=== PATIENT | female | born 1940 | race Caucasian/White ===

== ENCOUNTER 2025-04-17 13:16 | Emergency (ER) | payer MEDICARE ==
[~2025-04-17] VITALS: Ht 167.6 cm; Wt 83.0 kg
[2025-04-17 13:26] VITALS: TEMP 98.7
[2025-04-17 13:57] LABS: KETONE, URINE AUTO RFX NEGATIVE (NEGATIVE); LEUKOCYTE ESTERASE UR AUTO RFX NEGATIVE (NEGATIVE); MUCUS, URINE RFX SMALL (NEGATIVE); NITRITE, URINE AUTO RFX NEGATIVE (NEGATIVE); RBC, URINE AUTO RFX 2 /HPF (0-3); SQUAM EPITHELIAL CELL UR AURFX 0 /HPF (0-6); WBC, URINE AUTO RFX 0 /HPF (0-3)
[2025-04-17 16:28] VITALS: BP 187/78; O2SAT 99
== END 2025-04-17 16:42 | disposition home or self-care (01) ==
LOC: EDBD 13:16 → M ED 13:16
DX: N81.4 Uterovaginal prolapse, unspecified (principal); E11.9 Type 2 diabetes mellitus without complications; I10 Essential (primary) hypertension; J44.9 Chronic obstructive pulmonary disease, unspecified; Z86.73 Personal history of transient ischemic attack (TIA), and cerebral infarction without residual deficits; Z87.891 Personal history of nicotine dependence

== ENCOUNTER 2025-05-01 19:54 | Observation (INO) | payer MEDICARE ==
[~2025-05-01] VITALS: Ht 167.6 cm; Wt 82.4 kg
[2025-05-01 21:32] LABS: BASO # 0.0 10^3/uL (0.0-0.2); BASO % 0.3 % (0.0-1.0); EOS # 0.2 10^3/uL (0.0-0.5); EOS % 1.2 % (0.0-3.0); LYMPH # 1.2 10^3/uL (1.5-5.0); LYMPH % 7.9 % (24.0-44.0); MONO # 1.3 10^3/uL (0.0-0.8); MONO % 8.0 % (2.0-8.0); NEUTROPHILS # 12.9 10^3/uL (1.5-8.5); NEUTROPHILS % 82.2 % (36.0-66.0); PLATELET COUNT, AUTOMATED 192 10^3/uL (150-450)
[2025-05-01 21:38] LABS: ALT/SGPT 17.0 U/L (7.0-40); AST/SGOT 22.0 U/L (<34)
[2025-05-01] MEDS ORDERED: ISOVUE-370 76% 100 ML VIAL As Ordered ONE (22:15)
[2025-05-01] MEDS ORDERED: UNRESOLVED CLARIFICATION ENTRY XX STA (22:39)
[2025-05-01] MEDS: ACETAMINOPHEN *IV* 1,000 MG in IV 1 EA IV ONE (22:40)
[2025-05-01 22:48] LABS: CK-MB VALUE MASS 3.5 NG/ML (<3.6); CPK CREATINE PHOSPHOKINASE 103.0 U/L (34-145); MB/CK RELATIVE INDEX 3.39 (< OR =4)
[2025-05-01] MEDS: EPINEPHrine INJ 1 MG/ML 1ML AMP IM STA (23:24)
[2025-05-01 23:32] LABS: ABG BASE EXCESS -3.7 (-2.0-2.0); ABG HCO3 24.1 MMOL/L (22.0-26.0); ABG O2 SATURATION 99.7 % (95.0-99.0); ABG PARTIAL PRESSURE CO2 54.2 mmHg (35.0-45.0); ABG PARTIAL PRESSURE O2 332.8 mmHg (75.0-100.0); ABG STANDARD HCO3 21.5 MMOL/L. (22.0-26.0); ABG TOTAL CO2 25.8 MMOL/L (23.0-31.0); ABG pH (ARTERIAL) 7.266 UNITS (7.350-7.450)
[2025-05-01] MEDS: IPRATROPIUM 0.5 MG/ALBUTEROL 2.5 MG INH SOL UD 3 ML NEB ONE (23:34)
[2025-05-01] MEDS: IPRATROPIUM 0.5 MG/ALBUTEROL 2.5 MG INH SOL UD 3 ML NEB SCH (23:34)
[2025-05-01] MEDS: diphenhydrAMINE 50 MG/ML VIAL IV ONE (23:47)
[2025-05-02] VITALS (13 sets, daily range): BP systolic 110–148; BP diastolic 53–69; TEMP 97.2–99.2; O2SAT 85–95
[2025-05-02] MEDS ORDERED: ONDANSETRON 4MG/2ML VIAL IV PRN (01:40)
[2025-05-02] MEDS ORDERED: IPRATROPIUM 0.5 MG/ALBUTEROL 2.5 MG INH SOL UD 3 ML NEB PRN (01:40)
[2025-05-02] MEDS: TORSEMIDE 20 MG TAB PO SCH (03:20)
[2025-05-02] MEDS ORDERED: LISI10TA22 PO (03:51)
[2025-05-02] MEDS ORDERED: LOVA10TA PO (03:51)
[2025-05-02] MEDS ORDERED: ESTR0.1C5 PV (03:51)
[2025-05-02] MEDS ORDERED: VITA200016 PO (03:51)
[2025-05-02] MEDS ORDERED: METF850T4 PO (03:51)
[2025-05-02] MEDS ORDERED: CLOP75TA2 PO (03:51)
[2025-05-02] MEDS ORDERED: MIRT-10 PO (03:51)
[2025-05-02] MEDS ORDERED: DORZ2SOL5 OD (03:51)
[2025-05-02] MEDS ORDERED: PREDOPD OD (03:51)
[2025-05-02] MEDS ORDERED: LORA-1041 PO (03:51)
[2025-05-02] MEDS ORDERED: NEBI10TA2 PO (03:51)
[2025-05-02] MEDS ORDERED: NITR0.4S14 PO (03:51)
[2025-05-02] MEDS ORDERED: FAMO1TAB11 PO (03:51)
[2025-05-02] MEDS ORDERED: ALPR0.25 PO (03:51)
[2025-05-02] MEDS ORDERED: SERT25TA21 PO (03:51)
[2025-05-02] MEDS ORDERED: HOME MED LIST COMPLETE! XX SCH (03:55)
[2025-05-02] MEDS ORDERED: NITROGLYCERIN 0.4 MG SUBL TABLET SL PRN (07:30)
[2025-05-02] MEDS ORDERED: GLUCOSE 4 GM CHEW PO PRN (07:30)
[2025-05-02] MEDS ORDERED: GLUCAGON INJ 1 MG VIAL SC PRN (07:30)
[2025-05-02] MEDS ORDERED: DEXTROSE 50% 50 ML SYRINGE IV PRN (07:30)
[2025-05-02 07:44] LABS: BASO # 0.0 10^3/uL (0.0-0.2); BASO % 0.1 % (0.0-1.0); EOS # 0.0 10^3/uL (0.0-0.5); EOS % 0.0 % (0.0-3.0); LYMPH # 0.8 10^3/uL (1.5-5.0); LYMPH % 5.7 % (24.0-44.0); MONO # 0.2 10^3/uL (0.0-0.8); MONO % 1.1 % (2.0-8.0); NEUTROPHILS # 13.2 10^3/uL (1.5-8.5); NEUTROPHILS % 92.6 % (36.0-66.0); PLATELET COUNT, AUTOMATED 222 10^3/uL (150-450)
[2025-05-02 08:13] LABS: ALT/SGPT 16.0 U/L (7.0-40); AST/SGOT 19.0 U/L (<34); CALCIUM LEVEL 9.0 MG/DL (8.3-10.6); CARBON DIOXIDE LEVEL 27.0 MMOL/L (20-31); CHLORIDE LEVEL 102.0 MMOL/L (98-107); CREATININE FOR GFR 0.63 MG/DL (0.55-1.30); GLOMERULAR FILTRATION RATE 87.4 (>32); MAGNESIUM LEVEL 1.7 MG/DL (1.8-2.4); POTASSIUM SERUM 3.8 MMOL/L (3.5-5.1); SODIUM LEVEL 142.0 MMOL/L (136-145)
[2025-05-02 08:44] LABS: ESTIMATED AVERAGE GLUCOSE 123.0 MG/DL (60-110)
[2025-05-02] MEDS: ENOXAPARIN 40 MG/0.4 ML SYRINGE (J1650 PER 10MG) SC SCH (09:13)
[2025-05-02] MEDS: DORZOLAMIDE/TIMOLOL 10 ML OPHTHALMIC SOLN OD SCH (09:13)
[2025-05-02] MEDS: MAG SULF 1GM/100ML (MAG RUN) 1 GM in IV 1 EA IV ONE (09:13)
[2025-05-02] MEDS: prednisoLONE ACET 1% OPHTH SUSP 5ML OD SCH (09:13)
[2025-05-02] MEDS: VITAMIN D 1,000 INTERNATIONAL UNITS TABLET PO SCH (09:14)
[2025-05-02] MEDS: SERTRALINE HCL 25 MG TABLET PO SCH ×2 (09:14→21:31)
[2025-05-02] MEDS: LORATADINE 10 MG TAB PO SCH (09:14)
[2025-05-02] MEDS: INSULIN LISPRO (NovoLOG) PER UNIT SC SCH ×2 (09:14→21:00)
[2025-05-02] MEDS: FAMOTIDINE 20 MG TAB PO SCH (09:14)
[2025-05-02] MEDS: CLOPIDOGREL 75 MG TAB PO SCH (09:14)
[2025-05-02] MEDS: PREPARATION H SUPP (HEMORRHOID) PR SCH (11:30)
[2025-05-02] MEDS: ASPIRIN 81 MG CHEWABLE TABLET PO SCH (11:30)
[2025-05-02] MEDS: ALPRAZolam 0.25 MG TAB PO PRN (21:28)
[2025-05-02] MEDS: ACETAMINOPHEN 325 MG TAB PO PRN (21:29)
[2025-05-02] MEDS: SIMVASTATIN 10 MG TAB PO SCH (21:30)
[2025-05-02] MEDS: MIRTAZAPINE 15 MG TAB PO SCH (21:31)
[2025-05-03] VITALS (9 sets, daily range): BP systolic 108–138; BP diastolic 55–70; TEMP 97.4–98.7; O2SAT 92–97
[2025-05-03 07:14] LABS: PLATELET COUNT, AUTOMATED 218 10^3/uL (150-450)
[2025-05-03 07:45] LABS: ALT/SGPT 13.0 U/L (7.0-40); AST/SGOT 20.0 U/L (<34); CALCIUM LEVEL 8.4 MG/DL (8.3-10.6); CARBON DIOXIDE LEVEL 30.0 MMOL/L (20-31); CHLORIDE LEVEL 104.0 MMOL/L (98-107); CREATININE FOR GFR 0.65 MG/DL (0.55-1.30); GLOMERULAR FILTRATION RATE 86.8 (>32); MAGNESIUM LEVEL 2.0 MG/DL (1.8-2.4); POTASSIUM SERUM 3.6 MMOL/L (3.5-5.1); SODIUM LEVEL 143.0 MMOL/L (136-145)
[2025-05-03 10:42] LABS: KETONE, URINE AUTO RFX NEGATIVE (NEGATIVE); NITRITE, URINE AUTO RFX NEGATIVE (NEGATIVE); RBC, URINE AUTO RFX TNTC /HPF (0-3); SQUAM EPITHELIAL CELL UR AURFX 0 /HPF (0-6)
[2025-05-03 10:43] LABS: LEUKOCYTE ESTERASE UR AUTO RFX 1+ (NEGATIVE); WBC, URINE AUTO RFX TNTC /HPF (0-3)
[2025-05-03] MEDS: ESTROGENS VAGINAL CREAM 30 GM PV SCH (12:52)
[2025-05-03] MEDS: TAMSULOSIN 0.4 MG CAP PO ONE (12:52)
[2025-05-03] MEDS: cefTRIAXone SOD 1 GM in DEXTROSE 5% (D5W) ADV/MINI-BAG 50 ML IV SCH (12:53)
[2025-05-03] MEDS: PREPARATION H OINTMENT (HEMORRHOID) PR SCH (13:06)
[2025-05-03] MEDS: METAMUCIL PACKET PO SCH (14:51)
[2025-05-04 00:11] VITALS: BP 112/56; TEMP 97.8; O2SAT 94
[2025-05-04 04:02] VITALS: BP 127/63; TEMP 98.4; O2SAT 97
[2025-05-04 06:27] LABS: BASO # 0.0 10^3/uL (0.0-0.2); BASO % 0.3 % (0.0-1.0); EOS # 0.3 10^3/uL (0.0-0.5); EOS % 3.2 % (0.0-3.0); LYMPH # 1.6 10^3/uL (1.5-5.0); LYMPH % 16.4 % (24.0-44.0); MONO # 1.0 10^3/uL (0.0-0.8); MONO % 9.8 % (2.0-8.0); NEUTROPHILS # 6.9 10^3/uL (1.5-8.5); NEUTROPHILS % 69.9 % (36.0-66.0); PLATELET COUNT, AUTOMATED 212 10^3/uL (150-450)
[2025-05-04 06:55] LABS: ALT/SGPT 16.0 U/L (7.0-40); AST/SGOT 18.0 U/L (<34); CALCIUM LEVEL 8.1 MG/DL (8.3-10.6); CARBON DIOXIDE LEVEL 30.0 MMOL/L (20-31); CHLORIDE LEVEL 101.0 MMOL/L (98-107); CREATININE FOR GFR 0.68 MG/DL (0.55-1.30); GLOMERULAR FILTRATION RATE 85.8 (>32); MAGNESIUM LEVEL 1.8 MG/DL (1.8-2.4); POTASSIUM SERUM 3.3 MMOL/L (3.5-5.1); SODIUM LEVEL 141.0 MMOL/L (136-145)
[2025-05-04 08:00] VITALS: BP 170/78; TEMP 97.6; O2SAT 98
[2025-05-04] MEDS: POTASSIUM CHLORIDE 10MEQ SR TABLET PO ONE (09:13)
[2025-05-04] MEDS: TAMSULOSIN 0.4 MG CAP PO SCH (09:14)
[2025-05-04 12:00] VITALS: BP 116/57; TEMP 98.2; O2SAT 95
[2025-05-04] MEDS ORDERED: META1POW PO (12:38)
[2025-05-04] MEDS ORDERED: ESTR62CR PV (12:38)
[2025-05-04] MEDS ORDERED: FAMO20TA PO (12:38)
[2025-05-04] MEDS ORDERED: ASPI81CH8 PO (12:38)
[2025-05-04] MEDS ORDERED: PREPOI PR (12:38)
[2025-05-04] MEDS ORDERED: SULF-8 PO (12:38)
[2025-05-04] MEDS ORDERED: CLAR10CA3 PO (12:38)
[2025-05-04] MEDS ORDERED: TAMS-18 PO (12:38)
[2025-05-04] MEDS ORDERED: TORS20TA2 PO (12:38)
[2025-05-04 16:00] VITALS: BP 124/61; TEMP 98; O2SAT 98
[2025-05-04 21:13] VITALS: BP 138/62; TEMP 98.7; O2SAT 93
[2025-05-05 00:28] VITALS: BP 144/65; TEMP 98.1; O2SAT 94
[2025-05-05 04:50] VITALS: BP 140/64; TEMP 97.3; O2SAT 93
[2025-05-05 06:32] LABS: BASO # 0.1 10^3/uL (0.0-0.2); BASO % 0.5 % (0.0-1.0); EOS # 0.5 10^3/uL (0.0-0.5); EOS % 5.0 % (0.0-3.0); LYMPH # 1.9 10^3/uL (1.5-5.0); LYMPH % 20.1 % (24.0-44.0); MONO # 1.0 10^3/uL (0.0-0.8); MONO % 10.8 % (2.0-8.0); NEUTROPHILS # 5.8 10^3/uL (1.5-8.5); NEUTROPHILS % 63.3 % (36.0-66.0); PLATELET COUNT, AUTOMATED 226 10^3/uL (150-450)
[2025-05-05 06:54] LABS: ALT/SGPT 23.0 U/L (7.0-40); AST/SGOT 19.0 U/L (<34); CALCIUM LEVEL 8.5 MG/DL (8.3-10.6); CARBON DIOXIDE LEVEL 30.0 MMOL/L (20-31); CHLORIDE LEVEL 102.0 MMOL/L (98-107); CREATININE FOR GFR 0.6 MG/DL (0.55-1.30); GLOMERULAR FILTRATION RATE 88.5 (>32); MAGNESIUM LEVEL 1.8 MG/DL (1.8-2.4); POTASSIUM SERUM 4.0 MMOL/L (3.5-5.1); SODIUM LEVEL 142.0 MMOL/L (136-145)
[2025-05-05 09:19] VITALS: BP 158/74; TEMP 97.1; O2SAT 92
[2025-05-05 09:36] VITALS: BP 158/74
[2025-05-05] MEDS ORDERED: LEVO75TAB PO (10:20)
[2025-05-05] MEDS: MOM 30 ML SUSPENSION UDC PO PRN (11:23)
[2025-05-05 12:00] VITALS: BP 106/50; TEMP 98; O2SAT 98
== END 2025-05-05 16:02 | disposition home or self-care (01) ==
LOC: M ED 19:54 → M ED INP 19:55 → M PCU 05-02 03:42 → M MSPAV 05-02 16:41
PROVIDERS: ADMIT Internal Medicine; ATTEND Internal Medicine
DX: R19.7 Diarrhea, unspecified (principal); N81.2 Incomplete uterovaginal prolapse; N30.00 Acute cystitis without hematuria; R33.9 Retention of urine, unspecified; B95.2 Enterococcus as the cause of diseases classified elsewhere; T88.6XXA Anaphylactic reaction due to adverse effect of correct drug or medicament properly administered, initial encounter; E87.6 Hypokalemia; D72.829 Elevated white blood cell count, unspecified; E83.42 Hypomagnesemia; E87.70 Fluid overload, unspecified; L53.9 Erythematous condition, unspecified; K51.20 Ulcerative (chronic) proctitis without complications; I10 Essential (primary) hypertension; R41.0 Disorientation, unspecified; R15.9 Full incontinence of feces; R32 Unspecified urinary incontinence; N95.2 Postmenopausal atrophic vaginitis; I35.2 Nonrheumatic aortic (valve) stenosis with insufficiency; I35.1 Nonrheumatic aortic (valve) insufficiency; K59.00 Constipation, unspecified; R05.9 Cough, unspecified; R06.02 Shortness of breath; J44.9 Chronic obstructive pulmonary disease, unspecified; E78.5 Hyperlipidemia, unspecified; E11.9 Type 2 diabetes mellitus without complications; I25.10 Atherosclerotic heart disease of native coronary artery without angina pectoris; I25.2 Old myocardial infarction; Z95.5 Presence of coronary angioplasty implant and graft; Z85.3 Personal history of malignant neoplasm of breast; Z90.13 Acquired absence of bilateral breasts and nipples; M06.9 Rheumatoid arthritis, unspecified; M19.90 Unspecified osteoarthritis, unspecified site; F41.9 Anxiety disorder, unspecified; F32.A Depression, unspecified; I69.398 Other sequelae of cerebral infarction; Z91.041 Radiographic dye allergy status; Z79.899 Other long term (current) drug therapy; Z79.84 Long term (current) use of oral hypoglycemic drugs; F17.290 Nicotine dependence, other tobacco product, uncomplicated; Z99.81 Dependence on supplemental oxygen
CPT/HCPCS: 36415; 36600; 71275; 74018; 74177; 80047; 80053; 80076; 81001; 82550; 82553; 82803; 83036; 83605; 83690; 83735; 84145; 84484; 85025; 85027; 87088; 87186; 87486; 87507; 87581; 87633; 87798; 93005; 93306; 94640; 94660; 96365; 96372; 96375; 96376; 97161; 97530; 99285; G0378; J0131; J0166; J0696; J1200; J1650; J1815; J2919; J3475; Q9967